=== PATIENT | female | born 1995 | race Caucasian/White ===

== ENCOUNTER → 2020-03-16 12:21 | Outpatient (BNVA) | payer SELFPAY | PROVIDERS: Family Provider Family Medicine; Visit Provider Nurse Practitioner Family | DX: R10.9 Unspecified abdominal pain (principal) | CPT/HCPCS: 81000; 81025; 87491; 87591; 87661 ==

== ENCOUNTER 2021-01-29 18:39 | Emergency (ER) | payer SELFPAY ==
[2021-01-29 18:44] VITALS: BP 131/88; PULSE 85; RESP 18; TEMP 36.6; O2SAT 100; BMI 24.1
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
[2021-01-29] MEDS: HYDROcodone-acetaminophen 5-325 mg Tablet 1 TAB PO (19:54)
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
[2021-01-29 20:04] VITALS: RESP 18
[2021-01-29] MEDS: morphine 4 mg/mL SDV 1 mL IVP (20:04)
[2021-01-29] MEDS: ondansetron 2 mg/ML SDV 2 mL 4 MG IVP (20:05)
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
[2021-01-30 00:30] VITALS: BP 129/85; PULSE 93; O2SAT 100
== END 2021-01-29 22:15 | disposition home or self-care (01) ==
PROVIDERS: Emergency Provider Emergency Medicine
DX: S13.4XXA Sprain of ligaments of cervical spine, initial encounter (principal); W22.10XA Striking against or struck by unspecified automobile airbag, initial encounter; F17.210 Nicotine dependence, cigarettes, uncomplicated; V89.2XXA Person injured in unspecified motor-vehicle accident, traffic, initial encounter
CPT/HCPCS: 70450; 71045; 72125; 96374; 96375; 99283; J2270; J2405

== ENCOUNTER → 2021-10-03 16:15 | Outpatient (BNVA) | payer SELFPAY | PROVIDERS: Visit Provider Registered Nurse Neonatal Intensive Care | DX: J02.0 Streptococcal pharyngitis (principal) | CPT/HCPCS: 87880 ==

== ENCOUNTER 2022-01-28 16:45 | Emergency (ER) | payer SELFPAY ==
[2022-01-28 16:57] VITALS: BMI 21.4
[2022-01-28 17:10] VITALS: BP 125/88; PULSE 91; RESP 18; TEMP 36.5; O2SAT 99
--- NOTE | 2022-01-28 17:37 | W.ED.PSYCHS ---
HPI - Psych General: Chief Complaint: Psychiatric Symptoms Stated Complaint: 96 HOUR HOLD Time Seen by Provider: 01/28/22 16:52 Source: patient Mode of arrival: ambulatory Limitations: no limitations History of Present Illness: 26-year-old female who is here with police for suicidal ideations. Patient states she has been under a lot of stress recently and has cut her legs and has had a plan of cutting her wrist to kill herself. She never been admitted in the past she is not on any medicine she denies any worsening proving factors. Associated symptoms: Reports depression and suicidal ideation Review of Systems Const: Denies: fever(s), chills, body aches or change in appetite Eyes: Denies: blurry vision or eye discomfort ENMT: Denies: throat pain or dental pain Card: Denies: chest pain Resp: Denies: dyspnea GI: Denies: abdominal pain, nausea, vomiting or diarrhea : Denies: dysuria Musc: Denies: neck pain or back pain Skin/Breast: Denies: rash Neuro: Denies: headache(s) Psych: Reports: depression and suicidal ideation James/Lymph: Denies: easy bruising All/Imm: Denies: urticaria PFSH ED PFSH: Social History Smoking and tobacco status: current every day smoker cigarettes Alcohol intake: never Female Reproductive History: Date of last menstrual period: 02/08/20 Physical Exam Const: COMMON NORMALS: no acute distress, patient oriented x3 and healthy appearing HENMT: COMMON NORMALS: normocephalic and atraumatic HEAD & SCALP: normocephalic and atraumatic Eye: COMMON NORMALS: Equal, round and reactive pupils present and EOMs intact bilaterally PUPIL: Yes Equal, round and reactive pupils present Neck/C-Spine: COMMON NORMALS: full ROM and supple Chest: COMMONS NORMALS: normal inspection of the chest and normal palpation of entire chest wall Resp: COMMON NORMALS: normal respiratory effort, No retractions, No use of accessory muscles and clear to auscultation bilaterally AUSCULTATION: clear to auscultation bilaterally Cardio: COMMON NORMALS: regular rate, regular rhythm and No murmurs present (Cardio) RATE: regular rate RHYTHM: regular rhythm GI: COMMON NORMALS: Normal to inspection, nondistended, normoactive bowel sounds present, Soft to palpation, non-tender and no masses PALPATION: Yes Soft to palpation Extremity: COMMON NORMALS: normal to inspection and full ROM Neuro: COMMON NORMALS: patient oriented x3, moves all extremities and no focal motor deficits Psych: COMMON NORMALS: mental status grossly normal, Normal thought process present and cooperative MOOD & AFFECT: Yes depressed mood THOUGHT PROCESS: Normal thought process present THOUGHT CONTENT: Yes Suicidality present Skin: COMMON NORMALS: no rashes or lesions noted and no wounds GENERAL SKIN EXAM: no rashes or lesions noted Course Vital Signs: Vital signs: Vital Signs Temperature 97.7 F 01/28/22 17:10 Pulse Rate 97 01/28/22 17:56 Respiratory Rate 18 01/28/22 17:10 Blood Pressure 125/88 01/28/22 17:10 Pulse Oximetry 98 01/28/22 17:56 MDM - Psych Medical Decision Making Patient presents here with suicidal ideation she is placed under 96-hour hold patient is medically cleared and will transfer due to bed availability Lab Data 01/28/22 17:50 01/28/22 17:10 Laboratory Results WBC 6.7 10^3/uL (4.0-10.0) 01/28/22 17:50 RBC 4.44 10^6/uL (4.1-5.3) 01/28/22 17:50 Hgb 12.3 g/dL (11.5-15.3) 01/28/22 17:50 Hct 37.6 % (37.0-47.0) 01/28/22 17:50 MCV 84.7 fl (81-99) 01/28/22 17:50 MCH 27.7 pg (28.0-34.0) L 01/28/22 17:50 MCHC 32.7 g/dL (30.0-36.0) 01/28/22 17:50 RDW 12.6 % (12.1-15.1) 01/28/22 17:50 Plt Count 249 10^3/cmm (130-400) 01/28/22 17:50 MPV 9.7 fL (7.4-10.4) 01/28/22 17:50 Neut % (Auto) 61.6 % 01/28/22 17:50 Lymph % (Auto) 31.1 % 01/28/22 17:50 [place] % (Auto) 4.5 % 01/28/22 17:50 Eos % (Auto) 2.1 % 01/28/22 17:50 Baso % (Auto) 0.6 % 01/28/22 17:50 Neut # (Auto) 4.15 10^3/uL (1.8-7.7) 01/28/22 17:50 Lymph # (Auto) 2.1 10^3/uL (0.8-4.8) 01/28/22 17:50 [place] # (Auto) 0.3 10^3/uL (0.2-0.9) 01/28/22 17:50 Eos # (Auto) 0.1 10^3/uL (0.0-0.8) 01/28/22 17:50 Baso # (Auto) 0.0 10^3/uL (0.0-0.1) 01/28/22 17:50 Nucleated RBC % (auto) 0 % 01/28/22 17:50 Nucleated RBCs # 0.0 /100WBC 01/28/22 17:50 Sodium 137 mmol/L (136-145) 01/28/22 17:10 Potassium 3.6 mmol/L (3.5-5.1) 01/28/22 17:10 Chloride 101 mmol/L (98-107) 01/28/22 17:10 Carbon Dioxide 25 mmol/L (22-29) 01/28/22 17:10 Anion Gap 14.6 (5-19) 01/28/22 17:10 BUN 13 mg/dL (6-20) 01/28/22 17:10 Creatinine 0.4 mg/dL (0.5-0.9) L 01/28/22 17:10 GFR Calculation 192.9 mL/min (90-130) H 01/28/22 17:10 Glucose 91 mg/dL (65-115) 01/28/22 17:10 Calculated Osmolality 284 mOsm/kg (285-295) L 01/28/22 17:10 Calcium 9.2 mg/dL (8.5-10.5) 01/28/22 17:10 Total Bilirubin 0.3 mg/dL (0.15-1.2) 01/28/22 17:10 AST 13 U/L (0-32) 01/28/22 17:10 ALT 13 U/L (0-33) 01/28/22 17:10 Alkaline Phosphatase 65 U/L (35-105) 01/28/22 17:10 Total Protein 7.1 g/dL (6.6-8.7) 01/28/22 17:10 Albumin 4.1 g/dL (3.5-5.2) 01/28/22 17:10 Globulin 3.0 g/dL (1.3-4.6) 01/28/22 17:10 TSH 0.77 uIU/mL (0.27-4.20) 01/28/22 17:10 HCG, Qual Negative (Negative) 01/28/22 17:10 Urine Color Yellow (Yellow) 01/28/22 17:30 Urine Appearance Clear (CLEAR) 01/28/22 17:30 Urine pH 6 (5-7) 01/28/22 17:30 Ur Specific [place] 1.015 (1.005-1.030) 01/28/22 17:30 Urine Protein Neg (Negative) 01/28/22 17:30 Urine Glucose (UA) Norm (Normal) 01/28/22 17:30 Urine Ketones Negative (Negative) 01/28/22 17:30 Urine Blood Neg (Negative) 01/28/22 17:30 Urine Nitrate Negative (Negative) 01/28/22 17:30 Urine Bilirubin Neg (Negative) 01/28/22 17:30 Urine Urobilinogen Norm mg/dL (Negative) 01/28/22 17:30 Ur Leukocyte Esterase Negative (Negative) 01/28/22 17:30 Salicylates < 0.3 mg/dL (3-10) L 01/28/22 17:10 Urine Opiates Screen Negative ng/mL (Negative) 01/28/22 17:30 Acetaminophen < 5.0 ug/mL (10-30) L 01/28/22 17:10 Ur Barbiturates Screen Negative ng/mL (Negative) 01/28/22 17:30 Ur Phencyclidine Scrn Negative ng/mL (Negative) 01/28/22 17:30 Ur Amphetamines Screen Positive ng/mL (Negative) H 01/28/22 17:30 U Benzodiazepines Scrn Negative ng/mL (Negative) 01/28/22 17:30 Urine Cocaine Screen Negative ng/mL (Negative) 01/28/22 17:30 U Marijuana (THC) Screen Negative ng/mL (Negative) 01/28/22 17:30 Ethyl Alcohol < 10 mg/dL (0-10) 01/28/22 17:10 SARS-CoV-2 Ag (Rapid) negative (Negative) 01/28/22 18:00 Discharge Plan Discharge Patient Disposition: Xfer Psychiatric Hosp Clinical Impression: Suicidal ideation Condition: Stable Prescriptions: No Action No Known Home Medications Coding Level of Care Code ED Cell Changer for Alix Fwd Exam Comprehensive
[2022-01-28 17:40] LABS: Add Urine Microscopic? NO; Charge for UA Resulting for Rev
[2022-01-28 17:44] LABS: Bilirubin Urine Neg (Negative); Blood Urine Neg (Negative); Glucose Urine UA Norm (Normal); Ketones Urine Negative (Negative); Leukocyte Esterase Urine Negative (Negative); Nitrate Urine Negative (Negative); Protein Urine Neg (Negative); Specific Gravity, Urine 1.015 (1.005-1.030); Urine Appearance Clear (CLEAR); Urine Color Yellow (Yellow); Urobilinogen Urine Norm (Negative); pH Urine 6 (5-7)
[2022-01-28 17:54] LABS: HCG, Serum Qual Negative (Negative)
[2022-01-28 17:56] VITALS: PULSE 97; O2SAT 98
[2022-01-28 17:58] LABS: Basophils % 0.6 %; Eosinophils # 0.1 10^3/uL (0.0-0.8); Eosinophils % 2.1 %; Hematocrit 37.6 % (37.0-47.0); Hemoglobin 12.3 g/dL (11.5-15.3); Lymphocytes # 2.1 10^3/uL (0.8-4.8); Lymphocytes % 31.1 %; Mean Corpuscular HGB Conc 32.7 g/dL (30.0-36.0); Mean Corpuscular Hemoglobin 27.7 pg (28.0-34.0); Mean Corpuscular Volume 84.7 fl (81-99); Mean Platelet Volume 9.7 fL (7.4-10.4); Monocytes # 0.3 10^3/uL (0.2-0.9); Monocytes % 4.5 %; Neutrophils # 4.15 10^3/uL (1.8-7.7); Neutrophils % 61.6 %; Nucleated Red Blood Cells % 0 %; Platelet Count 249 10^3/cmm (130-400); Red Blood Count 4.44 10^6/uL (4.1-5.3); Red Cell Distribution Width 12.6 % (12.1-15.1); White Blood Count 6.7 10^3/uL (4.0-10.0)
[2022-01-28 18:01] LABS: Alanine Aminotransferase 13 U/L (0-33); Albumin Level 4.1 g/dL (3.5-5.2); Alkaline Phosphatase 65 U/L (35-105); Anion Gap 14.6 (5-19); Aspartate Amino Transferase 13 U/L (0-32); Blood Urea Nitrogen 13 mg/dL (6-20); Calcium 9.2 mg/dL (8.5-10.5); Carbon Dioxide 25 mmol/L (22-29); Chloride 101 mmol/L (98-107); Glomerular Filtration Rate 192.9 mL/min (90-130); Glucose 91 mg/dL (65-115); Osmolality Calculated 284 mOsm/kg (285-295); Potassium 3.6 mmol/L (3.5-5.1); Sodium 137 mmol/L (136-145); Total Bilirubin 0.3 mg/dL (0.15-1.2); Total Protein 7.1 g/dL (6.6-8.7)
[2022-01-28 18:03] LABS: Alcohol Level < 10 mg/dL (0-10)
[2022-01-28 18:48] LABS: SARS Covid-2 Antigen negative (Negative)
[2022-01-28 20:41] LABS: Amphetamines Screen Urine Positive (Negative); Barbiturates Screen Urine Negative (Negative); Benzodiazepines Screen Urine Negative (Negative); Cocaine Screen Urine Negative (Negative); Opiate Screen Urine Negative (Negative); PCP Screen Urine Negative (Negative); THC Screen Urine Negative (Negative)
[2022-01-28 20:51] LABS: Thyroid Stimulating Hormone 0.77 uIU/mL (0.27-4.20)
[2022-01-28] MEDS: nicotine 21 mg Patch 1 PATCH TRANSDERMA (20:51)
[2022-01-28 20:53] LABS: Acetaminophen < 5.0 ug/mL (10-30); Salicylate < 0.3 mg/dL (3-10)
[2022-01-29] MEDS: ondansetron 4 MG Tablet PO (01:51)
--- NOTE | 2022-01-29 01:51 | PC.NURSE ---
Patient c/o nausea. Spoke with Dr Martinez and MARLENY lezama ordered and given to pt.
[2022-01-29 02:00] VITALS: BP 121/72; PULSE 80; RESP 16; O2SAT 100
[2022-01-29 04:50] VITALS: BP 121/72; PULSE 80; RESP 16; O2SAT 100
== END 2022-01-29 08:16 ==
PROVIDERS: Family Medicine; Emergency Provider Emergency Medicine
DX: R45.851 Suicidal ideations (principal); F32.A Depression, unspecified
CPT/HCPCS: 80053; 80306; 80307; 81003; 84443; 84703; 85025; 87426; 99285; Q0162

== ENCOUNTER 2022-12-03 10:50 | Outpatient (CLI) | payer SELFPAY ==
--- NOTE | 2022-12-03 11:02 | XRR_ITS ---
PROCEDURE INFORMATION: Exam: XR Abdomen Exam date and time: 12/03/2022 11:15 AM Age: 27 years old Clinical indication: Abdominal pain; Generalized; Prior surgery; Surgery date: 6+ months; Surgery type: Tubal TECHNIQUE: Imaging protocol: Radiologic exam of the abdomen. Views: Frontal supine view of the abdomen. 1 View. COMPARISON: CR XR chest 1V portable [id number] 01/29/2021 8:22 PM FINDINGS: Gastrointestinal tract: Nonspecific bowel gas pattern without dilatation of bowel or obstruction. Gas and stool noted within the colon predominantly, with [id number] stool content. Intraperitoneal space: A rounded laminated appearing calcification is seen in the right upper quadrant of approximately 2 x 1.5 cm. This is at the L2-3 level on the right. This could represent gallstone versus large stone in the right renal pelvis, with gallstone more likely. No indication of free air. Bones/joints: Visualized osseous structures show no acute abnormality. Other findings: Psoas margins appear distinct. XR/XR abdomen 1V* [id number] IMPRESSION: 1. Nonspecific nonobstructive bowel gas pattern. 2. Approximately 2 x 1.5 cm rounded laminated appearing calcification in the right upper quadrant at the L2-3 level. This likely represents a large gallstone, with large stone in the right renal pelvis of the kidney a less likely consideration. Consider further evaluation with ultrasound of the right upper quadrant.
== END 2022-12-03 10:51 | disposition home or self-care (01) ==
PROVIDERS: Visit Provider Nurse Practitioner
DX: R10.9 Unspecified abdominal pain (principal); R93.5 Abnormal findings on diagnostic imaging of other abdominal regions, including retroperitoneum
CPT/HCPCS: 74018; 81000; 81025

== ENCOUNTER → 2023-10-09 16:13 | Outpatient (BNVA) | payer SELFPAY | DX: N89.8 Other specified noninflammatory disorders of vagina (principal) | CPT/HCPCS: 81000; 87491; 87591 ==

== ENCOUNTER → 2024-07-05 11:46 | Outpatient (BNVA) | payer SELFPAY | PROVIDERS: Visit Provider Registered Nurse Neonatal Intensive Care | DX: R39.9 Unspecified symptoms and signs involving the genitourinary system (principal); N39.0 Urinary tract infection, site not specified; R31.9 Hematuria, unspecified | CPT/HCPCS: 81000; 87086 ==

== ENCOUNTER 2025-02-23 12:13 | Emergency (ER) | payer SELFPAY ==
[2025-02-23 12:19] VITALS: BP 90/60; PULSE 85; RESP 14; TEMP 36.8; O2SAT 99; BMI 24.1
--- NOTE | 2025-02-23 12:34 | W.ED.DENTAL ---
HPI - Dental/Oral General: Chief complaint: Dental/Oral Stated complaint: L side upper tooth pain Time Seen by Provider: 02/23/25 12:27 History of Present Illness: 29-year-old female presents emergency room with complaint of left maxillary dental pain. She has very poor dentition multiple eroded teeth and dental caries she has not been able to see the dentist she has not had any fever sweats chills no drainage from the teeth. Recently having increased pain. Describes the pain as throbbing. Associated symptoms: Denies fever(s) Related Data Previous Rx's ?Medication ?Instructions ?Recorded sulfamethoxazole 800 1 tab PO BID #14 tabs 07/17/24 mg-trimethoprim 160 mg tablet (Bactrim DS) amoxicillin 875 mg-potassium 1 tab PO BID #14 tabs 02/23/25 clavulanate 125 mg tablet diclofenac sodium 75 mg 75 mg PO Q12H PRN pain #20 tabs 02/23/25 tablet,delayed release Allergies Allergy/AdvReac Type Severity Reaction Status Date / Time No Known Allergies Allergy Verified 02/23/25 12:24 Review of Systems Const: Denies: fever(s) or chills Card: Denies: chest pain Resp: Denies: dyspnea GI: Denies: abdominal pain : Denies: dysuria, urinary frequency or urinary urgency Musc: Denies: neck pain or back pain Skin/Breast: Denies: rash PFSH ED PFSH: Social History Smoking and tobacco/nicotine status: current every day tobacco/nicotine user cigarettes Alcohol intake: never Substance/Drug Use: never Physical Exam Const: COMMON NORMALS: no acute distress GENERAL APPEARANCE: cooperative and comfortable ORIENTATION/CONSCIOUSNESS: Yes awake, Yes oriented to person, Yes oriented to place and Yes oriented to time HENMT: COMMON NORMALS: normocephalic, atraumatic and hearing grossly normal bilaterally HEAD & SCALP: normocephalic and atraumatic OTHER: Multiple dental caries no sign of swelling no abscess. Severe erosion of multiple posterior molars particularly on the left side. No cervical lymphadenopathy Resp: COMMON NORMALS: normal respiratory effort, No retractions, No use of accessory muscles and clear to auscultation bilaterally AUSCULTATION: clear to auscultation bilaterally Cardio: COMMON NORMALS: regular rate, regular rhythm and No murmurs present (Cardio) RATE: regular rate RHYTHM: regular rhythm Extremity: COMMON NORMALS: normal to inspection, capillary refill normal, no clubbing, cyanosis or edema, no calf tenderness and no pedal edema Neuro: SENSORIUM/ORIENTATION: Yes oriented to person, Yes oriented to place and Yes oriented to time Skin: COMMON NORMALS: no rashes or lesions noted GENERAL SKIN EXAM: no rashes or lesions noted Course Vital Signs: Vital signs: Vital Signs Temperature 98.2 F 02/23/25 12:19 Pulse Rate 85 02/23/25 12:19 Respiratory Rate 14 02/23/25 12:19 Blood Pressure 90/60 02/23/25 12:19 Pulse Oximetry 99 02/23/25 12:19 Oxygen Delivery Me thod Room Air 02/23/25 12:19 MDM - Dental/Oral Medical Decision Making Medical decision making Social determinants: Poor access to dental care due to lack of insurance I reviewed the patient's medical record. I reviewed the patient's current home meds. Alternate historians: None Differential diagnosis: Dental Abscess dental caries Lab Review: None Imaging: None Assessment of risk Level of risk: Low Hospitalization considerations: No indication for hospitalization Assessment and plan: Treat as an outpatient starting Augmentin 1 tablet twice a day for 10 days also give diclofenac to use. Encouraged follow-up with a dentist for definitive care as soon as she is able. No radiology studies performed this visit Discharge Plan Discharge Patient Disposition: Home Clinical Impression: Dental caries Condition: Stable Prescriptions: New amoxicillin-pot clavulanate 875-125 mg tablet 1 tab PO BID Qty: 14 0RF diclofenac sodium 75 mg tablet,delayed release (DR/EC) 75 mg PO Q12H PRN (Reason: pain) Qty: 20 0RF No Action sulfamethoxazole-trimethoprim [Bactrim DS] 800-160 mg tablet 1 tab PO BID Qty: 14 0RF Discharge Orders: Discharge ED (Routine); Ordered 02/23/25 Ordered By: Mack Monroe Discharge Diet: Soft Mechanical Discharge Activity: Increase activity as tolerated Patient Instructions: Opioid Safety, Pain Management, Patient Portal & Samara Instructions Activity Restrictions/Additional Instructions: Thank you for choosing [facility] for your healthcare needs today. It is very important that you follow up as instructed or that you return to the Emergency Department should you have concerns or if your condition changes or worsens in any way. Emergency department visits are focused on emergent conditions, in some cases you may require further evaluation on an outpatient basis. You are seen in the emergency room with complaints of dental pain. There is no sign of any abscess at this time and multiple dental caries. Start you on some oral antibiotics 1 pill twice a day for 10 days additionally recommend you start on anti-inflammatories and follow-up with a dentist as soon as you are able (Please note that included in your discharge packet is information concerning opioid safety and pain management. This information is given to all patients were discharged from the ER regardless of their discharge diagnosis or the medicines they usually take or are prescribed.) Print Language: Arabic Coding Level of Care Code ED [employer] Sharpshooter for Alix Jacob
[2025-02-23 13:23] VITALS: BP 107/67; PULSE 93; O2SAT 100
== END 2025-02-23 13:27 | disposition home or self-care (01) ==
PROVIDERS: Emergency Provider Family Medicine
DX: K02.9 Dental caries, unspecified (principal)
CPT/HCPCS: 99283

== ENCOUNTER 2025-02-28 12:00 | Emergency (ER) | payer SELFPAY ==
[2025-02-28 12:02] VITALS: BP 101/64; PULSE 97; RESP 16; TEMP 36.8; O2SAT 96; BMI 23.8
--- NOTE | 2025-02-28 12:06 | ED_ITS ---
HPI - Nausea/Vomiting/Diarrhea 2 General: Chief complaint: Nausea/Vomiting/Diarrhea Stated complaint: AB PAIN Time Seen by Provider: 02/28/25 12:00 History of Present Illness: 29-year-old female presents emergency ro om via EMS yesterday she took 2 of her Augmentin at the same time. She is prescribed Augmentin 875 1 p.o. twice daily for tooth infection. She states she has been feeling weak since that time. Associated symtoms: Denies chest pain or dysuria Related Data Previous Rx's ?Medication ?Instructions ?Recorded sulfamethoxazole 800 1 tab PO BID #14 tabs mg-trimethoprim 160 mg tablet (Bactrim DS) amoxicillin 875 mg-potassium 1 tab PO BID #14 tabs clavulanate 125 mg tablet diclofenac sodium 75 mg 75 mg PO Q12H PRN pain #20 t abs 02/23/25 tablet,delayed release promethazine 25 mg tablet 25 mg PO Q6H PRN nausea and 02/28/25 vomiting #10 tabs Allergies Allergy/AdvReac Type Severity Reaction Status Date / Time No Known Allergies Allergy Verified 02/23/25 12:24 Review of Systems 2 Const: Denies: fever(s) or chills Card: Denies: chest pain Resp: Denies: dyspnea GI: Denies: abdominal pain : Denies: dysuria, urinary frequency or urinary urgency Musc: Denies: neck pain or back pain Skin/Breast: Denies: rash PFSH ED 2 PFSH: Social History Smoking and tobacco/nicotine status: current every day tobacco/nicotine user cigarettes Alcohol intake: never Substance/Drug Use: never Physical Exam 2 Const: COMMON NORMALS: no acute distress GENERAL APPEARANCE: cooperative and comfortable ORIENTATION/CONSCIOUSNESS: Yes awake, Yes oriented to person, Yes oriented to place and Yes oriented to time HENMT: COMMON NORMALS: normocephalic, atraumatic and hearing grossly normal bilaterally HEAD & SCALP: normocephalic and atraumatic Resp: COMMON NORMALS: normal respiratory effort, No retractions, No use of accessory muscles and clear to auscultation bilaterally AUSCULTATION: clear to auscultation bilaterally Cardio: COMMON NORMALS: regular rate, regular rhythm and No murmurs present (Cardio) RATE: regular rate RHYTHM: regular rhythm GI: COMMON NORMALS: Soft to palpation and No hepatosplenomegaly present A USCULTATION: Yes normoactive bowel sounds PALPATION: Yes Soft to palpation, No Tenderness to palpation present (GI), No Guarding due to palpation present (GI) and Yes No hepatosplenomegaly present Extremity: COMMON NORMALS: normal to inspection, capillary refill normal, no clubbing, cyanosis or edema, no calf tenderness and no pedal edema Neuro: SENSORIUM/ORIENTATION: Yes oriented to person, Yes oriented to place and Yes oriented to time Skin: COMMON NORMALS: no rashes or lesions noted GENERAL SKIN EXAM: no rashes or lesions noted Course 2 Vital Signs: Vital signs: Vital Signs Temperature 98.3 F 02/28/25 12:02 Pulse Rate 90 02/28/25 12:16 Respiratory Rate 16 02/28/25 12:02 Blood Pressure 101/64 02/28/25 12:02 Pulse Oximetry 100 02/28/25 12:16 Oxygen Delivery Me thod Room Air 02/28/25 12:16 MDM - Nausea/Vomiting/Diarrhea Medical Decision Making Medical decision making Social determinants: None I reviewed the patient's medical record. I reviewed the patient's current home meds. Alternate historians: None Differential diagnosis: Medication side effects. Dehydration viral gastroenteritis, secondary sources of infection cystitis Lab Review: Labs reviewed CBC and CMP no significant abnormalities hCG is negative urine negative Imaging: None Assessment of risk Level of risk: Low Hospitalization considerations: No indication for hospitalization Reexamination: Improved after fluids. Assessment and plan: Reviewed findings with patient discharge home laboratory tests are normal exam is benign this is mostly from side effects from doubling up on her Augmentin. Discussed with the patient should not cause long-term significant problems but will cause some GI upset. Clear liquid diet for the next 12 to 18 hours and advance as tolerated take her next dose of oral Augmentin tonight if promethazine to use as needed Lab Data 02/28/25 12:22 02/28/25 12:22 Laboratory Results WBC 8.02 10^3/uL (3.29-11.43) 02/28/25 12:22 RBC 4.44 10^6/uL (3.85-5.65) 02/28/25 12:22 Hgb 12.90 g/dL (11.27-16.99) 02/28/25 12:22 Hct 39.0 % (36-47) 02/28/25 12:22 MCV 87.8 fl (85-98) 02/28/25 12:22 MCH 29.1 pg (27-33) 02/28/25 12:22 MCHC 33.1 g/dL (30-55) 02/28/25 12:22 RDW 11.7 % (12.1-15.1) L 02/28/25 12:22 Plt Count 141 10^3/cmm (157-399) L 02/28/25 12:22 MPV 9.7 fL (7.4-10.4) 02/28/25 12:22 Neut % (Auto) 84.1 % 02/28/25 12:22 Lymph % (Auto) 6.5 % 02/28/25 12:22 [place] % (Auto) 5.0 % 02/28/25 12:22 Eos % (Auto) 4.0 % 02/28/25 12:22 Baso % (Auto) 0.2 % 02/28/25 12:22 Neut # (Auto) 6.74 10^3/uL (1.8-7.7) 02/28/25 12:22 Lymph # (Auto) 0.5 10^3/uL (0.8-4.8) L 02/28/25 12:22 [place] # (Auto) 0.4 10^3/uL (0.2-0.9) 02/28/25 12:22 Eos # (Auto) 0.3 10^3/uL (0.0-0.8) 02/28/25 12:22 Baso # (Auto) 0.0 10^3/uL (0.0-0.1) 02/28/25 12:22 Nucleated RBC % (auto) 0 % 02/28/25 12:22 Nucleated RBCs # 0.0 /100WBC 02/28/25 12:22 Sodium 136 mmol/L (136-145) 02/28/25 12:22 Potassium 4.4 mmol/L (3.5-5.1) 02/28/25 12:22 Chloride 101 mmol/L (98-107) 02/28/25 12:22 Carbon Dioxide 25 mmol/L (22-29) 02/28/25 12:22 Anion Gap 14.4 (5-19) 02/28/25 12:22 BUN 20 mg/dL (6-20) 02/28/25 12:22 Creatinine 0.6 mg/dL (0.5-0.9) 02/28/25 12:22 GFR Calculation 118.2 mL/min (90-130) 02/28/25 12:22 Glucose 95 mg/dL (65-115) 02/28/25 12:22 Calculated Osmolality 284 mOsm/kg (285-295) L 02/28/25 12:22 Calcium 8.6 mg/dL (8.5-10.5) 02/28/25 12:22 Total Bilirubin 0.4 mg/dL (0.15-1.2) 02/28/25 12: AST 15 U/L (0-32) 02/28/25 12: ALT 8 U/L (0-33) 02/28/25 12:22 Alkaline Phosphatase 55 U/L (35-105) 02/28/25 12:22 Total Protein 6.9 g/dL (6.6-8.7) 02/28/25 12:22 Albumin 4.2 g/dL (3.5-5.2) 02/28/25 12:22 Globulin 2.7 g/dL (1.3-4.6) 02/28/25 12:22 Lipase 62 U/L (13-60) H 02/28/25 12:22 HCG, Qual Negative (Negative) 02/28/25 12:22 Urine Color Yellow (Yellow) 02/28/25 12:11 Urine Appearance Clear (CLEAR) 02/28/25 12:11 Urine pH 8.0 (5-7) A 02/28/25 12:11 Ur Specific [place] 1.024 (1.005-1.030) 02/28/25 12:11 Urine Protein Negative (Negative) 02/28/25 12:11 Urine Glucose (UA) Negative (Normal) 02/28/25 12:11 Urine Ketones Negative (Negative) 02/28/25 12:11 Urine Blood Negative (Negative) 02/28/25 12:11 Urine Nitrate Negative (Negative) 02/28/25 12:11 Urine Bilirubin Negative (Negative) 02/28/25 12:11 Urine Urobilinogen 0.2 mg/dL (Negative) 02/28/25 12:11 Ur Leukocyte Esterase Negative (Negative) 02/28/25 12:11 Urine RBC 0-2 /hpf (0-2) 02/28/25 12:11 Urine WBC 0-5 /hpf (0-5) 02/28/25 12:11 Ur Squamous Epith Cells 0-5 /hpf (0-5) 02/28/25 12:11 Amorphous Sediment Not Reportable 02/28/25 12:11 Urine Bacteria None seen /hpf (NONE) 02/28/25 12:11 Hyaline Casts 0-4 /lpf H 02/28/25 12:11 No radiology studies performed this visit Discharge Plan Discharge Patient Disposition: Home Clinical Impression: Medication side effect Condition: Stable Prescriptions: New promethazine 25 mg tablet 25 mg PO Q6H PRN (Reason: nausea and vomiting) Qty: 10 0RF No Action sulfamethoxazole-trimethoprim [Bactrim DS] 800-160 mg tablet 1 tab PO BID Qty: 14 0RF amoxicillin-pot clavulanate 875-125 mg tablet 1 tab PO BID Qty: 14 0RF diclofenac sodium 75 mg tablet,delayed release (DR/EC) 75 mg PO Q12H PRN (Reason: pain) Qty: 20 0RF Discharge Orders: Discharge ED (Routine); Ordered 02/28/25 Ordered By: Mack Monroe Discharge Diet: Usual diet Discharge Activity: Resume usual activity Patient Instructions: Opioid Safety, Pain Management, Patient Portal & Samara Instructions Activity Restrictions/Additional Instructions: Thank you for choosing [facility] for your healthcare needs today. It is very important that you follow up as instructed or that you return to the Emergency Department should you have concerns or if your condition changes or worsens in any way. Emergency department visits are focused on emergent conditions, in some cases you may require further evaluation on an outpatient basis. You were seen in the emergency room with complaint of abdominal discomfort with nausea and vomiting (likely result of taking an extra dose of your Augmentin. This will not cause any serious long-term issues but will cause short-term GI upset. Recommend taking your regular dose tonight. You are also given promethazine to use as needed for nausea or vomiting. Clear liquid diet for the next 8 to 12 hours and advance as tolerated (Please note that included in your discharge packet is information concerning opioid safety and pain management. This information is given to all patients were discharged from the ER regardless of their discharge diagnosis or the medicines they usually take or are prescribed.) Print Language: Faroese Coding Level of Care Code ED Road Hogger Operator for Alix Jacob
[2025-02-28 12:16] VITALS: PULSE 90; O2SAT 100
[2025-02-28 12:28] LABS: Hematocrit 39.0 % (36-47); Hemoglobin 12.90 g/dL (11.27-16.99); Mean Corpuscular HGB Conc 33.1 g/dL (30-55); Mean Corpuscular Hemoglobin 29.1 pg (27-33); Mean Corpuscular Volume 87.8 fl (85-98); Nucleated Red Blood Cells % 0 %; Platelet Count 141 10^3/cmm (157-399); Red Blood Count 4.44 10^6/uL (3.85-5.65); White Blood Count 8.02 10^3/uL (3.29-11.43)
[2025-02-28 12:28] LABS: Glucose Urine UA Negative (Normal); Nitrate Urine Negative (Negative); Specific Gravity, Urine 1.024 (1.005-1.030)
[2025-02-28 12:34] LABS: Add Urine Microscopic? YES
[2025-02-28] MEDS: ondansetron 2 mg/ML SDV 2 mL 4 MG IVP (12:45)
[2025-02-28 12:46] LABS: HCG, Serum Qual Negative (Negative)
[2025-02-28 12:52] LABS: Alanine Aminotransferase 8 U/L (0-33); Albumin Level 4.2 g/dL (3.5-5.2); Alkaline Phosphatase 55 U/L (35-105); Anion Gap 14.4 (5-19); Aspartate Amino Transferase 15 U/L (0-32); Blood Urea Nitrogen 20 mg/dL (6-20); Calcium 8.6 mg/dL (8.5-10.5); Carbon Dioxide 25 mmol/L (22-29); Chloride 101 mmol/L (98-107); Globulin 2.7 g/dL (1.3-4.6); Glucose 95 mg/dL (65-115); Lipase 62 U/L (13-60); Osmolality Calculated 284 mOsm/kg (285-295); Potassium 4.4 mmol/L (3.5-5.1); Sodium 136 mmol/L (136-145); Total Protein 6.9 g/dL (6.6-8.7)
[2025-02-28 13:24] VITALS: BP 102/61; PULSE 88; O2SAT 97
== END 2025-02-28 13:25 | disposition home or self-care (01) ==
PROVIDERS: Emergency Provider Family Medicine
DX: T50.905A Adverse effect of unspecified drugs, medicaments and biological substances, initial encounter (principal); X58.XXXA Exposure to other specified factors, initial encounter; F17.210 Nicotine dependence, cigarettes, uncomplicated
CPT/HCPCS: 36415; 80053; 81001; 83690; 84703; 85025; 96361; 96374; 99284; J2405; J7030